=== PATIENT | female | born 1950 | race Caucasian/White ===

== ENCOUNTER → 2016-07-31 | Day surgery (SDC) | payer OTHER ==
--- NOTE | 2016-07-30 22:40 | HHI.HP ---
HPI Chief Complaint postmenopausal abnormal uterine bleeding, thickened endometrial lining, pelvic pain Date Seen: July 31, 2016 Travel History International Travel<30 Days: No Contact w/Intl Traveler<30Days: No Known Affected Area: No History of Present Illness HPI Patient is a 66 year old female who has recently developed postmenopausal abnormal uterine bleeding. She had a pelvic ultrasound which revealed a thick endometrial lining. The patient is therefore scheduled for surgical evaluation. Para: 2 : 2 Miscarriage: 0 : 0 History Past Medical History Narrative Medical BMI 28.3 Medical History: Denies Significant Hx Obstetric History Obstetric History Two pregnancies, two deliveries Past Surgical History Narrative Surgical 1972 -- section Family History Narrative Family History Mother -- breast cancer Social History Alcohol Use: No Tobacco Use: No Substance Abuse: No Allergies-Medications (Allergen,Severity, Reaction): Coded Allergies: No Known Allergies (Unverified , 07/30/16) Narrative Medication None Review of Systems General / Constitutional: No: Fever, Weight Gain, Chills, Other Eyes: No: Diploplia, Blurred Vision, Visual changes, Pain, Photophobia HENT: No: Headaches, Vertigo, Lightheadedness Cardiovascular: No: Irregular Rhythm, Chest Pain or Discomfort, Palpitations, Tachycardia, Syncope, Varicosities, Edema, Cyanosis Respiratory: No: Cough, Short of Breath, Other Gastrointestinal: No: Nausea, Vomiting, Diarrhea Genitourinary: Pelvic Pain, Vaginal Bleeding, No: Decreased Urinary Output, Oliguria Musculoskeletal: No: Limited ROM, Weakness, Cramping, Edema, Pain Skin: No Rash, No Itching, No Dryness, No Lumps, No Change in Pigmentation, No Change in Nails, No Alopecia, No Lesions Neurologic: No: Weakness, Dizziness, Syncope, Focal Abnormalities, Coordination Problem, Headache, Slurred Speech, Seizures Psychiatric: No: Depression, Suicidal Ideations, Homicidal Ideation Endocrine: No: Heat Intolerance, Cold Intolerance, Polydipsia, Polyuria, Other Physical Exam Narrative GENERAL: Well-nourished, well-developed patient. SKIN: Warm and dry. HEAD: Normocephalic and atraumatic. EYES: No scleral icterus. No injection or drainage. ENT: No nasal drainage noted. Mucous membranes pink. Airway patent. NECK: Supple, trachea midline. No JVD. CARDIOVASCULAR: Regular rate and rhythm without murmurs, gallops, or rubs. RESPIRATORY: Breath sounds equal bilaterally. No accessory muscle use. BREASTS: Bilateral exam showed no masses , no retractions, no nipple discharge. ABDOMEN/GI: Abdomen soft, non-tender, bowel sounds present, no rebound, no guarding, pannus GENITOURINARY: External Genitalia: intact and normal in appearance Uterus: normal size, no adnexal masses EXTREMITIES: No cyanosis or edema. BACK: Nontender without obvious deformity. No CVA tenderness. NEUROLOGICAL: Awake and alert. Motor and sensory grossly within normal limits. Five out of 5 muscle strength in all muscle groups. Normal speech. Data Data Vital Signs Reviewed: Yes Assessment/Plan Problem List: (1) Postmenopausal bleeding (2) Abnormal findings on diagnostic imaging of other specified body structures (3) Pelvic and perineal pain Assessment and Plan 1. admit for hysteroscopy, D&C, endometrial ablation 2. discussed the R/B/A of the procedure: bleeding, infection, damage to internal organs if uterine perforation occurs (bowel, bladder, nerves, ureters, vessels) as well damage to vaginal alex 3, discussed the possibility of needing further treatment and/or procedures 4. informed consent was obtained after patient's questions were answered; she verbalized understanding Twila Terry MD July 30, 2016 22:40
[~2016-07-31] MED LIST: KETOROLAC TROMETHAMINE 30 MG/ML (IVP) VIAL IV PUSH ONE; LACTATED RINGER'S 1000 ML INJ 1,000 ML ONE; MIDAZOLAM HCL 2 MG/2 ML VIAL ONE; ONDANSETRON HCL 4 MG/2 ML VIAL IV PUSH ONE; PROPOFOL 100 MG/10 ML INJ IV ONE; ceFAZolin INJ 1,000 MG VIAL ONE
--- NOTE | 2016-07-31 20:15 | PD.OP ---
Operative Report Date of Surgery: July 31, 2016 Preoperative Diagnosis: (1) Postmenopausal bleeding (2) Abnormal findings on diagnostic imaging of other specified body structures (3) Pelvic and perineal pain Postoperative Diagnosis: (1) Postmenopausal bleeding (2) Abnormal findings on diagnostic imaging of other specified body structures (3) Pelvic and perineal pain (4) Endometrial polyp (5) Endocervical polyp Procedure: 1. Hysteroscopy 2. Polypectomy 3. D&C Anesthesia: General Surgeon: Twila Terry Customer Service Sales Consultant(s): Staff Operation and Findings: IVF: 400 ml LR + IV antibiotics given prior to surgery UO: 50 EBL: < 25 ml Findings: multiple endometrial and endocervical polyp noted to be very vascular Specimens: endometrial + endocervical polyps + endometrial curettings Complications: none Conditions: stable Disposition: PACU Description of procedure: I discussed the risks, benefits and alternatives of the procedure with the patient. Her questions were answered, informed consent was signed, the patient verbalized understanding. She was then taken to the operating room with her IV running, was placed in the supine position and was given general anesthesia without difficulties or complications.The patient was then placed in the dorsal lithotomy position and was prepped and draped in the usual sterile fashion. A bivalved speculum was introduced inside the patient's vagina. The anterior aspect of the cervix was grasped with a single tooth tenaculum for manipulation. The cervix was carefully dilated. The Myosure camera was then introduced inside the patient's uterus. The uterine cavity was noted to have multiple large endometrial polyps and multiple "polypoid areas" as well as very vascular lining. There were also multiple endocervical polyps. The Myosure instrument was used to remove the polyps and the endometrial lining. A gentle curettage was done with a sharp curette. The tissues were sent to pathology. All the instruments were removed from the patient's uterus. Good hemostasis was noted at the tenaculum site. All instruments were removed from the patient's vagina. The patient tolerated the procedure well. She was successfully awaken from general anesthesia and was transferred to PACU in stable condition Note: I discussed the surgical findings and procedures with patient's daughters ; their questions were answered; they verbalized understanding and agreement. Twila Terry MD July 31, 2016 20:15
== END | disposition home or self-care (01) ==
LOC: ESDC 10:14
PROVIDERS: ATTEND Obstetrics & Gynecology
DX: N95.0 Postmenopausal bleeding (principal); R10.2 Pelvic and perineal pain; R93.8 Abnormal findings on diagnostic imaging of other specified body structures; N84.0 Polyp of corpus uteri; N84.1 Polyp of cervix uteri
CPT/HCPCS: 00952; 58558; 88305; J0690; J1885; J2250; J2405; J3010; J7120

== ENCOUNTER 2016-10-08 05:45 | Observation (INO) | payer OTHER ==
[~2016-10-08] VITALS: Ht 162.6 cm; Wt 74.4 kg
[2016-10-08] MEDS ORDERED: SODIUM CHLORIDE FLUSH PRN IV FLUSH (06:00)
[2016-10-08] MEDS ORDERED: CHLORHEXIDINE GLUCONATE 2 % 1 PACK (2 CLOTHS) TOPICAL PRN (06:00)
[2016-10-08] MEDS ORDERED: HEPARIN SODIUM - SQ 10,000 UNITS/ML VIAL SQ PRN (06:00)
[2016-10-08] MEDS ORDERED: SODIUM CHLORID 0.9% 500 ML IV PRN (06:00)
[2016-10-08] MEDS ORDERED: METOPROLOL TARTRATE 25 MG TAB PO PRN (06:00)
[2016-10-08] MEDS ORDERED: LACTATED RINGER'S 1000 ML IV PRN (06:00)
[2016-10-08] MEDS ORDERED: ceFAZolin 1,000 MG/NS 100 ML IV SCH ×2 (06:00)
[2016-10-08] MEDS ORDERED: INSULIN HUMAN REGULAR 1,000 UNITS/10 ML VIAL SQ PRN (06:00)
[2016-10-08] MEDS ORDERED: POVIDONE IODINE 5% (ANTISEPSIS KIT) 4 APPLICATIONS EACH NARE PRN (06:00)
[2016-10-08 06:15] VITALS: BP 138/77; PULSE 76; RESP 18; TEMP 98.8; O2SAT 98
[2016-10-08] MEDS ORDERED: DEXAMETHASONE SOD PHOS 4 MG/ML VIAL ONE (06:41)
[2016-10-08] MEDS ORDERED: FAMOTIDINE 20 MG/2 ML VIAL ONE (06:41)
[2016-10-08] MEDS ORDERED: ACETAMINOPHEN 1000 MG/100 ML VIAL IV ONE ×2 (06:41→07:02)
[2016-10-08] MEDS ORDERED: SUGAMMADEX SODIUM 200 MG/2 ML VIAL IV PUSH ONE ×2 (07:01)
[2016-10-08] MEDS ORDERED: fentaNYL CITRATE 250 MCG/5 ML AMP ONE ×2 (07:01→11:29)
[2016-10-08] MEDS ORDERED: HYDROmorphone HCL PF 2 MG/ML VIAL ONE (07:02)
[2016-10-08] MEDS ORDERED: LIDOCAINE 1.5%/EPINEPHrine 1:200,000 PF SOLN 30 ML AMP INFIL ONE (08:43)
[2016-10-08] MEDS ORDERED: SODIUM CHLORIDE FLUSH BID IV FLUSH SCH (09:00)
[2016-10-08] MEDS ORDERED: METHYLENE BLUE 10 MG/ML VIAL OTHER ONE (09:20)
[2016-10-08] MEDS ORDERED: ceFAZolin INJ 1,000 MG VIAL IV ONE (10:30)
[2016-10-08] MEDS ORDERED: SILVER NITR/POTASSIUM NITRATE APPLICATORS TOPICAL ONE (10:57)
[2016-10-08] MEDS ORDERED: diphenhydrAMINE HCL 25 MG CAP PO PRN (11:15)
[2016-10-08] MEDS ORDERED: ONDANSETRON HCL 4 MG/2 ML VIAL IVP PRN (11:15)
[2016-10-08] MEDS ORDERED: LORazepam 0.5 MG TAB PO PRN (11:15)
[2016-10-08] MEDS ORDERED: SODIUM CHLORIDE 0.9% FLUSH 10 ML FLUSH IV FLUSH PRN (11:15)
[2016-10-08] MEDS ORDERED: oxyCODONE/ACETAMINOPHEN 5 MG/325 MG TAB PO PRN ×2 (11:15)
[2016-10-08] MEDS ORDERED: MIDAZOLAM HCL 2 MG/2 ML VIAL ONE (11:28)
[2016-10-08] MEDS ORDERED: PILL SPLITTER OTHER PRN (11:45)
[2016-10-08] MEDS ORDERED: NORMOSOL R INJ 2,000 ML IV ONE (12:00)
[2016-10-08] MEDS ORDERED: PROPOFOL 200 MG/20 ML AMP IV ONE (12:00)
[2016-10-08] MEDS ORDERED: LACTATED RINGER'S 1000 ML INJ 1,000 ML IV ONE (12:00)
[2016-10-08] MEDS ORDERED: PHENYLEPH/NS 1000 MCG/10 ML SYR IV ONE (12:00)
[2016-10-08] MEDS ORDERED: ONDANSETRON HCL 4 MG/2 ML VIAL IV PUSH ONE (12:00)
[2016-10-08] MEDS ORDERED: ePHEDrine/NS 25 MG/5 ML SYR IV ONE (12:00)
[2016-10-08] MEDS ORDERED: DO NOT ADM ANY ANTICOAGULANT DRUGS PRN (12:30)
[2016-10-08] MEDS: D5-1/2 NS + KCL 20 MEQ INJ 1,000 ML IV SCH ×2 (12:30→23:06)
[2016-10-08] MEDS: KETOROLAC TROMETHAMINE 30 MG/ML (IVP) VIAL IVP SCH ×3 (12:30→23:06)
[2016-10-08] MEDS ORDERED: *morphine SULFATE 8 MG/ML PERIprocedure ONLY ONE (12:44)
--- NOTE | 2016-10-08 13:02 | MP ---
cc: THIERRY BUSBY MD, MD,ANGEL LUIS GANDHI MD DATE OF SURGERY 10/08/2016 PROCEDURE 10/08/2016 PREOPERATIVE DIAGNOSIS Grade 2 endometrial adenocarcinoma. POSTOPERATIVE DIAGNOSIS Grade 2 endometrial adenocarcinoma, intraperitoneal and pelvic adhesions. PROCEDURE Robotic-assisted laparoscopic hysterectomy bilateral salpingo-oophorectomy, bilateral pelvic lymphadenectomy, lysis of adhesions. SURGEON Angel Luis Mcgovern MD RN DOCUMENTATION SPECIALIST Cameron social service assistant ANESTHESIA General endotracheal anesthesia ESTIMATED BLOOD LOSS 100 cc IV FLUIDS 3200 cc URINE OUTPUT 200 cc HISTORY This is a 66-year-old female with postmenopausal bleeding of at least several months duration found on imaging to have a prominent uterus up with a prominent endometrium measuring at least 20 mm. Biopsy was performed that showed a grade 2 endometrial adenocarcinoma. She was counseled in favor of surgical management. She is seen again in the preop holding area where the findings are again reviewed and the plan of care is discussed. She expresses good understanding and agrees. FINDINGS There was no overt evidence of disease beyond the uterus. The peritoneal surfaces were smooth. There was no overtly enlarged pelvic or para-aortic lymph nodes. Tubes and ovaries grossly appeared normal. The uterus was slightly prominent sounded to 9 cm. The uterus, once removed, showed a tumor to be approximately 4 cm in diameter with deep myometrial invasion estimated that it invaded a 18/20 mm of myometrium. No cervical extension. PROCEDURE The patient taken to the operating room placed in the dorsal lithotomy position after general endotracheal anesthesia was administered. Time-out was undertaken. She was identified by sight recognition and hospital ID bracelet and the proposed procedure was reviewed and confirmed. She was carefully positioned in padded Nando stirrups. Her arms were padded and secured to her sides. She was further secured to the operating table with egg crate padding tape in a cross chest over the shoulder fashion. All sites noted be properly aligned with no malalignments or pressure points. She was prepped and draped in a sterile fashion, placed in high lithotomy position. The cervix grasped, uterine cavity sounded, cervix dilated, standard V-Care manipulator inserted and secured in the usual fashion. Clark catheter placed in the bladder. She was returned to low lithotomy position. A change of sterile gloves was undertaken. We confirmed an orogastric tube is in the stomach on suction. With manual elevation of the abdominal wall and direct laparoscopic visualization, a 5 mm cannula introduced into the left upper quadrant and an atraumatic entry was confirmed. Carbon dioxide gas was insufflated. A 12 mm cannula was placed in the midline above the umbilicus. An 8 mm cannula placed in the right upper quadrant and left lateral quadrant and the original 5-mm cannula was exchanged for an 8-mm cannula. She was placed in steep Trendelenburg position. Peritoneal washings were obtained for cytology. The anatomy was reviewed. Sharp dissection was carried out to dissect the omentum from the anterior abdominal wall and the abdomen and pelvis taken down with sharp dissection. The omentum and small bowel were folded back on their mesenteric root and three Ray-Ashish sponges were placed around the root of the small bowel mesentery. The robotic system brought into the operative field, attached in the usual fashion. Monopolar scissors, fenestrated bipolar forceps and Prograsp manipulators were placed in arms #1, 2 and 3 respectively. I took my place at the surgeon's console. The right round ligament isolated, cauterized and transected. The anterior and posterior leafs of the broad ligament were opened. The ovary was adherent to the right pelvic sidewall anteriorly and this was freed by dissecting the adjacent peritoneum and mobilizing the ovary. The right ureter was identified. The right infundibulopelvic ligament was isolated. The infundibulopelvic ligament was isolated to the level of the pelvic brim. The intervening peritoneum was opened. The infundibulopelvic ligament was cauterized and transected. The posterior peritoneum was dissected off the lower uterine segment and cervix and the uterine vessels were skeletonized and dissection of the bladder flap was initiated. Dense adhesions were present consistent with her prior sections. At the initiation of dissection of the vesicouterine peritoneum on the right was undertaken. The uterine vessels were skeletonized and cauterized. Attention was directed toward the left side where the left round ligament was isolated, cauterized and transected. The anterior and posterior leafs of the broad ligament were opened. Adhesions were taken down with sharp dissection. The colon was mobilized to gain access to the retroperitoneal structures. Left ureter was identified. The left infundibulopelvic ligament was isolated. The intervening peritoneum was opened. The infundibulopelvic ligament was dissected to the level of the pelvic brim where it was cauterized and transected. The posterior peritoneum opened along the left side of the uterus and cervix. An initiation of dissection of the bladder flap was carried out on the left. A dense band of scar tissue in the lower uterine segment, but the bladder was able to be dissected free below the scar tissue and dissected down below the level of the cervix and then sharp dissection was used to isolate bands of scar tissue, taken down with sharp dissection and focal cautery to free the scar from between the bladder and the uterus on the left side. Left uterine vessels were skeletonized, cauterized and transected as were the Cardinal, paracervical and uterosacral ligaments. Attention was redirected toward the right side where the right bladder flap scar was taken down with sharp dissection and focal cautery as dissection underneath allowed mobilization of the bladder below the level of the cervix until the bladder was now completely free and dropped below the level of the cervix. Right uterine vessels were transected. The cardinal, paracervical and uterosacral ligaments were isolated, cauterized and transected in a stepwise fashion. Circumferential colpotomy was performed the cervix from the upper vagina. The specimen was withdrawn transvaginally which included uterus, cervix, tubes and ovaries and a Pneumooccluder balloon was placed in the vagina to maintain pneumoperitoneum. Instruments one and three exchanged for needle drivers as a 0 Vicryl suture was introduced. The vaginal cuff was closed starting at the left corner full-thickness closure including the posterior peritoneum, edge of the uterosacral ligament tied via instrument tie. Closure was held on counter traction as a running continuous full-thickness closure was carried across the vaginal apex to the contralateral corner where it was similarly tied and secured. The needle was cut and removed. The pelvis was thoroughly irrigated. The integrity of the bladder was confirmed by filling the bladder with saline dyed with methylene blue. It distended nicely under pressure. There were no areas of thinning in the bladder certainly no extravasation of dye. Good peristalsis of ureters and good margin between the bladder edge and the vaginal cuff suture line and so the bladder was drained. Preliminary pathology came back showing a large tumor with deep myometrial invasion so attention was directed towards additional staging information. On the right side, the right paravesical, pararectal and obturator spaces were developed. Lymphatic tissue was dissected using bipolar cautery and sharp dissection starting at the bifurcation of the iliac vessels, carried distally along the psoas muscle. The genitofemoral nerve was isolated and spared. Dissection was carried distally to the circumflex iliac vein. The medial border of dissection was by isolating the superior vesical artery and lymphatic dissection was taken down to the obturator nerve. Lymphatics ventral to the obturator nerve were removed and this en bloc specimen was placed in the right pelvis for later retrieval. Attention was directed toward the left side where the left paravesical, pararectal an obturator spaces were opened. Similar to the right-sided dissection, bipolar cautery and sharp dissection were used to free the lymphatics from the external iliac vessels. The genitofemoral nerve was isolated and spared. Dissection was carried from the bifurcation of the iliacs to the circumflex iliac vein. Medially the border was the superior vesical artery and dissection was carried down to the level of the obturator nerve and lymphatic tissue ventral to the obturator nerve was removed and this en bloc specimen was placed in the left pelvis for later retrieval. Attention was directed toward the para-aortic lymph nodes. Inspection and palpation did not reveal any enlarged lymph nodes. There was a short mesenteric root of the small bowel and some redundancy about that made continued safe visibility of it challenging. It was felt that the thorough pelvic lymph node dissection would most likely provide information regarding the presence or absence of metastatic disease. It was felt that further attempts at para-aortic lymph node dissection may be associated with morbidity that exceeded benefit so it was felt that all reasonable surgical objectives had been completed. Robotic instruments were removed. The robotic system was disengaged from the operative field. I reentered bedside under sterile condition. Each of the three Ray-Ashish sponges that had been placed were now removed individually. Each were inspected and noted to be removed in their entirety. A 12 cm EndoCatch bag was used to capture first the right pelvic lymph nodes and then the left pelvic lymph nodes separately. Each were brought out through the 12-mm cannula. Inspection now confirmed that there were no remaining foreign objects in the peritoneal cavity. Preliminary counts were correct and attention was directed toward closing. The 12 mm cannula defect was closed with 0 Vicryl sutures using a needle pass apparatus. They were tied securely which rendered the fascia completely airtight and hemostatic. The remaining cannulas were withdrawn. Carbon dioxide gas was removed. 3-0 Vicryl subcutaneous and 3-0 Vicryl subcuticular were used to close these incisions followed by Steri-Strips. Pelvic exam was performed as she was replaced in the lithotomy position. There were no remaining foreign objects in the vagina. Final counts were correct. Vaginal cuff was well-supported. No vaginal lacerations. Superficial irritation at the introitus was rendered hemostatic with silver nitrate. She was returned to dorsal supine position and was pending reversal of anesthesia when I left the operating room to precede her to the Post Anesthesia Care Unit. MD JORGE Ortega/ARMANDO /11:46 AM /12:33 PM
--- NOTE | 2016-10-08 14:03 | PD.ONC.PN ---
Subjective Subjective Remarks post op note: pt seen in PACU awaiting bed on floor RN states she has had some pain 6/10 she got Morphine 5mg and Toradol 30 mg otherwise she has been doing well pt is sleepy but will open her eyes to answer questions Objective Data Date Time Temp Pulse Resp B/P Pulse Ox O2 Delivery O2 Flow Rate FiO2 10/08/16 12:49 15 10/08/16 11:30 77 15 157/81 98 Nasal Cannula 3 10/08/16 11:20 97.5 82 15 148/68 100 Nasal Cannula 4 10/08/16 06:15 98.8 76 18 138/77 98 10/08/16 10/08/16 10/08/16 06:59 14:59 22:59 Intake Total 3200 ml Output Total 300 ml Balance 2900 ml Laboratory Results Laboratory Tests Test 10/08/16 06:15 Blood Type O POSITIVE Antibody Screen NEGATIVE Blood Bank Comment Administered Medications Medications (Trade) Dose Ordered Sig/[place] Route PRN Reason Start Time Stop Time Status Last Admin Dose Admin Lactated Ringer's 1,000 ml @ 30 mls/hr Q24H PRN IV SEE LABEL COMMENTS 10/08/16 06:00 10/11/16 05:59 10/08/16 06:15 Potassium Chloride/Dextrose/ Sod Cl (D5-1/2 NS + KCl 20 Meq Inj) 1,000 ml @ 75 mls/hr [id number] IV 10/08/16 12:00 10/08/16 12:30 Ketorolac Tromethamine (Toradol Inj) 15 mg Q6H IVP 10/08/16 12:00 10/09/16 06:01 10/08/16 12:30 Objective Remarks GENERAL: Well-nourished, well-developed patient. SKIN: Warm and dry. HEAD: Normocephalic. EYES: No scleral icterus. No injection or drainage. , mild facial swelling CARDIOVASCULAR: Regular rate and rhythm without murmurs. RESPIRATORY: Breath sounds equal bilaterally. No accessory muscle use. GASTROINTESTINAL: SS c/d/i EXTREMITIES: teds and scds Assessment/Plan Problem List: (1) Post-operative state Status: Acute Plan: s/p RA lap hyst with BSO for endometrial cancer post op orders in chart pain meds per EMR and scheduled Toradol Clark to straight drain, will be D/Cd in am ADAT ok to get OOB to chair michaela with assistance anticipate discharge tomorrow (2) Endometrial ca Status: Acute Plan: final pathology is pending pt will follow up in [facility]/onc clinic in 2 weeks for final pathology and post op check Lex Haley Oct 08, 2016 14:03
[2016-10-08 18:40] VITALS: BP 111/59; PULSE 75; RESP 18; TEMP 98; O2SAT 94
[2016-10-08] MEDS: SODIUM CHLORIDE 0.9% FLUSH 10 ML FLUSH IV FLUSH SCH (21:00)
[2016-10-08 21:26] VITALS: BP 109/66; PULSE 72; RESP 18; TEMP 98.1; O2SAT 97
[2016-10-08 23:43] VITALS: O2SAT 97
[2016-10-09 01:02] VITALS: BP 118/62; PULSE 74; RESP 18; TEMP 98; O2SAT 96
[2016-10-09 04:41] VITALS: BP 120/64; PULSE 75; RESP 18; TEMP 98.2; O2SAT 96
[2016-10-09] MEDS: KETOROLAC TROMETHAMINE 30 MG/ML (IVP) VIAL IVP SCH (05:52)
[2016-10-09] MEDS: SODIUM CHLORIDE 0.9% FLUSH 10 ML FLUSH IV FLUSH SCH (07:40)
[2016-10-09 08:00] VITALS: BP 110/67; PULSE 76; RESP 18; TEMP 96.4; O2SAT 94
[2016-10-09] MEDS ORDERED: OXYC1TAB63 PO (08:18)
[2016-10-09] MEDS ORDERED: COLA100C PO (08:20)
--- NOTE | 2016-10-09 08:28 | PD.ONC.PN ---
Subjective Subjective Remarks Post op day #1 pt is sitting up along side of bed drinking coffee has some soreness to abdomen but states Percocet has been helping denies any n/v west has been discontinued and she has urinated discussed with pt findings during surgery per Dr. Mcgovern and questions answered Objective Data Date Time Temp Pulse Resp B/P Pulse Ox O2 Delivery O2 Flow Rate FiO2 10/09/16 07:36 16 10/09/16 04:41 98.2 75 18 120/64 96 10/09/16 01:02 98.0 74 18 118/62 96 10/08/16 23:43 97 21 10/08/16 21:26 98.1 72 18 109/66 97 10/08/16 20:08 21 10/08/16 18:40 98.0 75 18 111/59 94 10/08/16 18:15 97.1 70 16 115/68 95 Room Air 10/08/16 17:00 67 15 118/63 94 Room Air 10/08/16 16:00 67 15 124/66 94 Room Air 10/08/16 15:00 67 15 132/65 99 Nasal Cannula 2 10/08/16 14:00 69 15 137/69 97 Nasal Cannula 2 10/08/16 13:00 73 15 149/78 96 Nasal Cannula 2 10/08/16 12:49 15 10/08/16 12:45 73 15 147/80 95 Nasal Cannula 2 10/08/16 12:30 97.6 79 15 148/75 100 Nasal Cannula 3 10/08/16 12:15 79 15 142/76 99 Nasal Cannula 3 10/08/16 12:00 77 15 145/79 98 Nasal Cannula 3 10/08/16 11:45 78 15 155/84 98 Nasal Cannula 3 10/08/16 11:30 77 15 157/81 98 Nasal Cannula 3 10/08/16 11:20 97.5 82 15 148/68 100 Nasal Cannula 4 Administered Medications Medications (Trade) Dose Ordered Sig/B[place] Route PRN Reason Start Time Stop Time Status Last Admin Dose Admin Lactated Ringer's 1,000 ml @ 30 mls/hr Q24H PRN IV SEE LABEL COMMENTS 10/08/16 06:00 10/11/16 05:59 10/08/16 06:15 Potassium Chloride/Dextrose/ Sod Cl (D5-1/2 NS + KCl 20 Meq Inj) 1,000 ml @ 75 mls/hr [id number] IV 10/08/16 12:00 10/08/16 23:06 Objective Remarks GENERAL: Well-nourished, well-developed patient. SKIN: Warm and dry. HEAD: Normocephalic. EYES: No scleral icterus. No injection or drainage. CARDIOVASCULAR: Regular rate and rhythm without murmurs. RESPIRATORY: Breath sounds equal bilaterally. No accessory muscle use. GASTROINTESTINAL: Abdomen soft, non-tender, nondistended. SS are s/d/i without s/s of drainage or infection EXTREMITIES: No cyanosis, or edema. pt has compression stockings on MUSCULOSKELETAL: Adequate muscle tone. NEUROLOGICAL: No obvious focal deficit. Awake, alert, and oriented x3. PSYCHIATRIC: Appropriate mood and affect; insight and judgment normal. Assessment/Plan Problem List: (1) Post-operative state Status: Acute Plan: POD #1 s/p RA lap hyst with BSO for endometrial cancer OK to discharge pt home today after labs have been resulted Percocet script in chart Colace script in chart no home meds reported to restart will follow up in [place]/onc clinic in 2 weeks for final pathology and post op check (2) Endometrial ca Status: Acute Plan: final pathology is pending pt will follow up in [place]/onc clinic in 2 weeks for final pathology and post op check Attending Statement Dr. Mcgovern is in agreement with discharge. Lex Haley Oct 09, 2016 08:28
[2016-10-09 09:09] LABS: AUTOMATED NEUTROPHIL # 12.4 TH/MM3 (1.8-7.7); BASOPHIL # 0.1 TH/MM3 (0-0.2); BASOPHIL % 0.3 % (0.0-2.0); EOSINOPHIL % 0.3 % (0.0-4.0); HEMATOCRIT 37.1 % (35.0-46.0); HEMO FLAGS DIFF FINAL; LYMPH % 15.7 % (9.0-44.0); LYMPHOCYTE # 2.6 TH/MM3 (1.0-4.8); MEAN CELL VOLUME 86.2 FL (80.0-100.0); MEAN CORPUSCULAR HEMOGLOBIN 28.9 PG (27.0-34.0); MEAN CORPUSCULAR HGB CONC 33.6 % (32.0-36.0); MONO % 8.4 % (0.0-8.0); NEUT % 75.3 % (16.0-70.0); PLATELET COUNT 276 TH/MM3 (150-450); RED CELL DISTRIBUTION WIDTH 13.5 % (11.6-17.2); WHITE BLOOD COUNT 16.5 TH/MM3 (4.0-11.0)
[2016-10-09 09:32] LABS: BICARBONATE 28.8 MEQ/L (21.0-32.0); POTASSIUM 4.1 MEQ/L (3.5-5.1)
[2016-10-09 12:00] VITALS: BP 119/82; PULSE 80; RESP 18; TEMP 97.4; O2SAT 95
== END 2016-10-09 13:32 | disposition home or self-care (01) ==
LOC: HSDC 05:45 → HSDI 11:14 → HOCB 18:36
PROVIDERS: ADMIT Obstetrics & Gynecology Gynecologic Oncology; ATTEND Obstetrics & Gynecology Gynecologic Oncology
PROC: 0UTC7ZZ Resection of Cervix, Via Natural or Artificial Opening (ICD-10-PCS; 2016-10-08)
PROC: 0UT2FZZ Resection of Bilateral Ovaries, Via Natural or Artificial Opening With Percutaneous Endoscopic Assistance (ICD-10-PCS; 2016-10-08)
PROC: 0UT7FZZ Resection of Bilateral Fallopian Tubes, Via Natural or Artificial Opening With Percutaneous Endoscopic Assistance (ICD-10-PCS; 2016-10-08)
PROC: 0UT9FZZ Resection of Uterus, Via Natural or Artificial Opening With Percutaneous Endoscopic Assistance (ICD-10-PCS; principal; 2016-10-08 07:18)
DX: C54.1 Malignant neoplasm of endometrium (principal); E78.5 Hyperlipidemia, unspecified; E66.9 Obesity, unspecified; Z68.28 Body mass index [BMI] 28.0-28.9, adult; Z87.891 Personal history of nicotine dependence
CPT/HCPCS: 00840; 58552; 80048; 85025; 86850; 86900; 86901; 88112; 88307; 88309; 88329; 96361; 96374; 96376; G0378; J0131; J0690; J1100; J1170; J1644; J1885; J2250; J2270; J2370; J2405; J3010; J3480; J7120; 88305; 88331